=== PATIENT | male | born 1935 | race Caucasian/White ===

== ENCOUNTER 2016-06-28 10:08 | Emergency (ER) | payer MEDICARE ==
[~2016-06-28] VITALS: Ht 170.2 cm; Wt 106.0 kg
[2016-06-28 10:13] VITALS: BP 125/49; PULSE 100; RESP 20; TEMP 103.1; O2SAT 96
[2016-06-28] MEDS ORDERED: ONDANSETRON ODT 4 MG TAB PO ONE (10:30)
[2016-06-28] MEDS ORDERED: ACETAMINOPHEN 325 MG TAB PO ONE (10:30)
[2016-06-28 10:34] VITALS: BP 133/59; PULSE 75; RESP 18; TEMP 101.8; O2SAT 94
--- NOTE | 2016-06-28 10:34 | PD ---
HPI Chief Complaint: General Weakness Time Seen by Provider: 10:29 Travel History International Travel<30 days: No Contact w/Intl Traveler<30days: No Traveled to known affect area: No History of Present Illness HPI Patient presents accompanied by her friend with complaints of nausea and fever. Positive sick contacts. No new rashes. Denies any new chest pain shortness of breath urinary or bowel symptoms. Denies any vomiting. Reports normal stools. Nonsmoker, does not drink. PFSH Past Medical History Cardiovascular Problems: Yes (HTN) Social History Tobacco Use: No Allergies-Medications (Allergen,Severity, Reaction): Coded Allergies: No Known Allergies (Unverified , 06/28/16) Reported Meds & Prescriptions Reported Meds & Active Scripts Active Reported Prednisone Unknown Strength Tab Unknown Dose PO DAILY Axiron Topical (Testosterone) 30 Mg/Act Faviola 1 Applic TOPICAL DAILY Flomax (Tamsulosin HCl) 0.4 Mg Cap 0.4 Mg PO HS Lasix (Furosemide) 20 Mg Tab 20 Mg PO DAILY Lisinopril 5 Mg Tab 5 Mg PO DAILY Levothyroxine (Levothyroxine Sodium) 75 Mcg Tab 75 Mcg PO DAILY Simvastatin 20 Mg Tab 20 Mg PO HS Review of Systems General / Constitutional: Positive: Fever Eyes: No: Visual changes HENT: No: Headaches Cardiovascular: No: Chest Pain or Discomfort Respiratory: No: Shortness of Breath Gastrointestinal: Positive: Nausea, No: Abdominal Pain Genitourinary: No: Dysuria Musculoskeletal: No: Pain Skin: No Rash Neurologic: No: Weakness Psychiatric: No: Depression Endocrine: No: Polydipsia Hematologic/Lymphatic: No: Easy Bruising Physical Exam Narrative GENERAL: Well-nourished, well-developed patient. Slightly lethargic SKIN: Warm and dry. HEAD: Normocephalic. EYES: No scleral icterus. No injection or drainage. NECK: Supple, trachea midline. No JVD or lymphadenopathy. CARDIOVASCULAR: Regular rate and rhythm without murmurs, gallops, or rubs. RESPIRATORY: Breath sounds equal bilaterally. No accessory muscle use. GASTROINTESTINAL: Abdomen soft, non-tender, nondistended. MUSCULOSKELETAL: No cyanosis, or edema. BACK: Nontender without obvious deformity. No CVA tenderness. Data Data Last Documented VS Vital Signs Date Time Temp Pulse Resp B/P Pulse Ox O2 Delivery O2 Flow Rate FiO2 06/28/16 12:02 102.6 89 18 115/50 97 Room Air Orders Ondansetron Odt (Zofran Odt) (06/28/16 10:30) Acetaminophen (Tylenol) (06/28/16 10:30) Complete Blood Count With Diff (06/28/16 10:30) Basic Metabolic Panel (Bmp) (06/28/16 10:30) Urinalysis - C+S If Indicated (06/28/16 10:30) Chest, Single Ap (06/28/16 ) Blood Culture (06/28/16 10:34) Lactic Acid (06/28/16 10:34) Labs Laboratory Tests Test 06/28/16 06/28/16 11:05 11:30 White Blood Count 6.4 TH/MM3 Red Blood Count 5.37 MIL/MM3 Hemoglobin 15.1 GM/DL Hematocrit 44.9 % Mean Corpuscular Volume 83.5 FL Mean Corpuscular Hemoglobin 28.0 PG Mean Corpuscular Hemoglobin 33.5 % Concent Red Cell Distribution Width 14.4 % Platelet Count 274 TH/MM3 Mean Platelet Volume 7.1 FL Neutrophils (%) (Auto) 61.9 % Lymphocytes (%) (Auto) 23.5 % Monocytes (%) (Auto) 12.1 % Eosinophils (%) (Auto) 1.6 % Basophils (%) (Auto) 0.9 % Neutrophils # (Auto) 3.9 TH/MM3 Lymphocytes # (Auto) 1.5 TH/MM3 Monocytes # (Auto) 0.8 TH/MM3 Eosinophils # (Auto) 0.1 TH/MM3 Basophils # (Auto) 0.1 TH/MM3 CBC Comment DIFF FINAL Differential Comment Sodium Level 138 MEQ/L Potassium Level 3.4 MEQ/L Chloride Level 100 MEQ/L Carbon Dioxide Level 27.5 MEQ/L Anion Gap 11 MEQ/L Blood Urea Nitrogen 12 MG/DL Creatinine 1.40 MG/DL Estimat Glomerular Filtration 49 ML/MIN Rate Random Glucose 95 MG/DL Lactic Acid Level 0.9 mmol/L Calcium Level 9.3 MG/DL Urine Collection Type CLEAN CATCH Urine Color YELLOW Urine Turbidity CLEAR Urine pH 5.5 Urine Specific [place] 1.019 Urine Protein TRACE mg/dL Urine Glucose (UA) NEG mg/dL Urine Ketones NEG mg/dL Urine Occult Blood NEG Urine Nitrite NEG Urine Bilirubin NEG Urine Leukocyte Esterase NEG Urine RBC 0-3 /hpf Urine WBC 0-2 /hpf Urine Squamous Epithelial 0-5 /hpf Cells Urine Mucus OCC /lpf Microscopic Urinalysis Comment CULT NOT INDICATED Urine Collection Time 11:30 MDM Medical Decision Making Medical Screen Exam Complete: Yes Emergency Medical Condition: Yes Differential Diagnosis FUO, viral syndrome, gastritis Narrative Course Assessment and plan discussed with patient and friend at bedside. Patient received Tylenol and Zofran with significant improvement. Last 72 hours Impressions Chest X-Ray 06/28/16 0000 Signed Impressions: Service Date/Time: Tuesday, June 28, 2016 10:45 - CONCLUSION: Diminished lung volumes without infiltrate. Amadou James MD Diagnosis Primary Impression: Fever Qualified Code: R50.9 - Fever, unspecified fever cause Patient Instructions: General Instructions Additional Instructions: Encouraged rest fluids and Tylenol for fever. Anti-emetic as needed. Follow- up with PCP with any new symptoms. Med/Other Pt SpecificInfo: Prescription(s) given Scripts Ondansetron (Zofran)4 Mg Tab4 Mg PO Q6HR PRN (NAUSEA OR VOMITING) #20 TAB Ref 0 Prov:Tate Panda MD 06/28/16 Disposition: 01 DISCHARGE HOME Condition: Good Tate Panda MD Jun 28, 2016 10:34
--- NOTE | 2016-06-28 10:52 | RADHPO ---
EXAM DATE/TIME: 06/28/2016 10:45 [facility] COMPARISON: No previous studies available for comparison. INDICATIONS : Fever, cough MEDICAL HISTORY : None. SURGICAL HISTORY : None. ENCOUNTER: Initial ACUITY: 1 day PAIN SCORE: 0/10 LOCATION: Bilateral chest FINDINGS: A single view of the chest demonstrates diminished lung volumes without evidence of mass, infiltrate or effusion. The cardiomediastinal contours are unremarkable. Osseous structures are intact. CONCLUSION: Diminished lung volumes without infiltrate. Amadou James MD on June 28, 2016 at 10:49 Board Certified Radiologist. This report was verified electronically.
[2016-06-28 11:14] LABS: AUTOMATED NEUTROPHIL # 3.9 TH/MM3 (1.8-7.7); BASOPHIL # 0.1 TH/MM3 (0-0.2); BASOPHIL % 0.9 % (0.0-2.0); EOSINOPHIL # 0.1 TH/MM3 (0-0.4); EOSINOPHIL % 1.6 % (0.0-4.0); HEMATOCRIT 44.9 % (39.0-51.0); HEMO FLAGS DIFF FINAL; LYMPH % 23.5 % (9.0-44.0); LYMPHOCYTE # 1.5 TH/MM3 (1.0-4.8); MEAN CELL VOLUME 83.5 FL (80.0-100.0); MEAN CORPUSCULAR HGB CONC 33.5 % (32.0-36.0); MONO % 12.1 % (0.0-8.0); NEUT % 61.9 % (16.0-70.0); PLATELET COUNT 274 TH/MM3 (150-450); RED BLOOD COUNT 5.37 MIL/MM3 (4.50-5.90); RED CELL DISTRIBUTION WIDTH 14.4 % (11.6-17.2); WHITE BLOOD COUNT 6.4 TH/MM3 (4.0-11.0)
[2016-06-28] MEDS ORDERED: FURO1TAB62 PO (11:20)
[2016-06-28] MEDS ORDERED: SIMV20TA PO (11:20)
[2016-06-28] MEDS ORDERED: LEVO75TA3 PO (11:20)
[2016-06-28] MEDS ORDERED: LISI-519 PO (11:20)
[2016-06-28] MEDS ORDERED: TAMS5CAP PO (11:20)
[2016-06-28] MEDS ORDERED: AXIR30SO TOPICAL (11:21)
[2016-06-28] MEDS ORDERED: PRED2.5T PO (11:22)
[2016-06-28 11:23] VITALS: BP 140/62; PULSE 89; RESP 18; O2SAT 98
[2016-06-28 11:50] LABS: BLOOD, URINE NEG (NEG); GLUCOSE,URINE NEG (NEG); KETONE, URINE NEG (NEG); NITRITE,URINE NEG (NEG); PH, URINE 5.5 (5.0-8.5)
[2016-06-28 11:58] LABS: COMMENT (UR) CULT NOT INDICATED; CULTURE IF INDICATED CULT NOT INDICATED; METHOD OF COLLECTION CLEAN CATCH; MUCUS URINE OCC /lpf (OCC); RBC, URINE 0-3 /hpf (0-3); SQUAMOUS EPITHELIAL CELL URINE 0-5 /hpf (0-5); URINE COLOR YELLOW (YELLW/STRAW); WBC, URINE 0-2 /hpf (0-5)
[2016-06-28 12:02] VITALS: BP 115/50; PULSE 89; RESP 18; TEMP 102.6; O2SAT 97
[2016-06-28 12:05] LABS: POTASSIUM 3.4 MEQ/L (3.5-5.1)
[2016-06-28 12:08] LABS: BICARBONATE 27.5 MEQ/L (21.0-32.0)
[2016-06-28] MEDS ORDERED: ZOFR4TAB PO (12:16)
[2016-06-28 12:47] VITALS: BP 101/53
--- NOTE | 2016-06-29 12:59 | EKG ---
Date Performed: 06/28/2016 Time Performed: 10:24:10 PTAGE: 81 years EKG: Sinus rhythm Indeterminate axis Borderline ECG NO PREVIOUS TRACING DOCTOR: Abner Diaz Interpretating Date/Time 06/29/2016 12:59:49
== END 2016-06-28 12:47 | disposition home or self-care (01) ==
LOC: PHED 10:08
DX: R50.9 Fever, unspecified (principal); R11.0 Nausea; I10 Essential (primary) hypertension; R94.31 Abnormal electrocardiogram [ECG] [EKG]
CPT/HCPCS: 71010; 80048; 81001; 83605; 85025; 87040; 93005; 99284